=== PATIENT | female | born 1965 | race Caucasian/White ===

== ENCOUNTER 2019-04-01 21:37 | Emergency (ER) | payer BC, OTHER ==
--- NOTE | 2019-04-01 22:14 | ER Document Report ---
ED Medical Screen (RME) - General Chief Complaint: Leg Pain Stated Complaint: PAIN IN LEFT LEG Time Seen by Provider: 04/01/19 22:12 Primary Care Provider: BROOK SPARKS [Primary Care Provider] - Follow up as needed Notes: Patient is a 53-year-old female with a history of hypertension who presents to the emergency department with the acute onset of left lower calf pain and leg swelling. Patient states that this occurred at 10 AM this morning. Patient denies injury or fall. Patient states she does not have a history DVT. Patient denies any open wounds or lacerations. Patient denies a history of cellulitis. Patient denies a history of diabetes. Denies recent long car rides or travel. TRAVEL OUTSIDE OF THE [place] IN LAST 30 DAYS: No Physical Exam - Vital signs Vitals: Temp Pulse Resp BP Pulse Ox 98.0 F 87 20 147/93 H 95 04/01/19 21:57 04/01/19 21:57 04/01/19 21:57 04/01/19 21:57 04/01/19 21:57 - Extremities Notes: Left calf is warm to touch, there is significant edema to the left lower extremity including the foot. No erythema or open wounds. Course - Re-evaluation Re-evalutation: 04/01/19 22:14 I have greeted and performed a rapid initial assessment of this patient. A c omprehensive ED assessment and evaluation of the patient, analysis of test results and completion of the medical decision making process will be conducted by additional ED providers. - Vital Signs Vital signs: Temp Pulse Resp BP Pulse Ox 98.0 F 87 20 147/93 H 95 04/01/19 21:57 04/01/19 21:57 04/01/19 21:57 04/01/19 21:57 04/01/19 21:57 Doctor's Discharge - Discharge Referrals: BROOK SPARKS [Primary Care Provider] - Follow up as needed
[2019-04-01 23:02] LABS: ABSOLUTE EOSINOPHILS # (AUTO) 0.2 10^3/uL (0.0-0.6); ABSOLUTE LYMPHOCYTES (AUTO) 1.9 10^3/uL (0.5-4.7); RED BLOOD COUNT 4.54 10^6/uL (3.72-5.28); RED CELL DISTRIBUTION WIDTH 14.1 % (11.5-14.0); TOTAL CELLS COUNTED % (AUTO) 100 %
[2019-04-01 23:10] LABS: ABSOLUTE BASOPHILS # (AUTO) 0.1 10^3/uL (0.0-0.2); ABSOLUTE MONOCYTES (AUTO) 0.6 10^3/uL (0.1-1.4); ABSOLUTE NEUT (AUTO) 4.7 10^3/uL (1.7-8.2); BASOPHILS % (AUTO) 0.7 % (0-2); EOSINOPHILS % (AUTO) 3.1 % (0-6); HEMOGLOBIN 15.2 g/dL (12.0-15.5); LYMPHOCYTES % (AUTO) 25.9 % (13-45); MEAN CORPUSCULAR HEMOGLOBIN 33.5 pg (27.0-33.4); MEAN CORPUSCULAR HGB CONC 34.7 g/dL (32.0-36.0); MEAN CORPUSCULAR VOLUME 97 fl (80-97); MONOCYTES % (AUTO) 7.4 % (3-13); PLATELET COUNT 210 10^3/uL (150-450); SEGMENTED NEUTROPHILS % (AUTO) 62.9 % (42-78); WHITE BLOOD COUNT 7.4 10^3/uL (4.0-10.5)
[2019-04-01 23:20] LABS: ANION GAP 9 (5-19); BLOOD UREA NITROGEN 5 mg/dL (7-20); CALCIUM 9.1 mg/dL (8.4-10.2); CARBON DIOXIDE 26 mmol/L (22-30); CHLORIDE 99 mmol/L (98-107); GLUCOSE 114 mg/dL (75-110); POTASSIUM 4.1 mmol/L (3.6-5.0); SODIUM 134.4 mmol/L (137-145)
[2019-04-02] MEDS ORDERED: HYDROCODONE/ACETAMINOPHEN 5-325 MG TABLET PO ONE ×2 (01:07→06:42)
--- NOTE | 2019-04-02 01:08 | ER Document Report ---
ED Extremity Problem, Lower - General TRAVEL OUTSIDE OF THE [place] IN LAST 30 DAYS: No <YOLANDA MORENO - Last Filed: 04/02/19 06:42> <DARLING HUNTER - Last Filed: 04/02/19 11:54> - General Chief Complaint: Leg Pain Stated Complaint: PAIN IN LEFT LEG Time Seen by Provider: 04/01/19 22:12 Primary Care Provider: CLARE,BROOK [NO LOCAL MD] - Follow up as needed Notes: Patient is a 53-year-old female with a history of hypertension who presents to the emergency department with left calf pain and swelling that started at 10 AM yesterday morning. Patient denies injury or fall. Patient denies any recent car travel. Patient denies recent surgery. Patient states that the pain is worse with movement and walking. Patient states that she is having a calf pain and redness to the site. Patient denies fever. Feels like an aching in nature. (YOLANDA MORENO) Past Medical History - General Information source: Patient - Social History Smoking Status: Current Every Day Smoker Cigarette use (# per day): No Chew tobacco use (# tins/day): No Frequency of alcohol use: Heavy Drug Abuse: None Lives with: Family Family History: None Patient has suicidal ideation: No Patient has homicidal ideation: No - Past Medical History Cardiac Medical History: Reports: Hx Hypertension Pulmonary Medical History: Reports: None EENT Medical History: Reports: None Neurological Medical History: Reports: None Endocrine Medical History: Reports: None Renal/ Medical History: Reports: None. Denies: Hx Peritoneal Dialysis Malignancy Medical History: Reports: None GI Medical History: Reports: None Musculoskeletal Medical History: Reports None Skin Medical History: Reports None Psychiatric Medical History: Reports: Hx Depression Traumatic Medical History: Reports: None Infectious Medical History: Reports: None Past Surgical History: Reports: Hx Orthopedic Surgery - shoulder <YOLANDA MORENO - Last Filed: 04/02/19 06:42> Review of Systems - Review of Systems Constitutional: No symptoms reported EENT: No symptoms reported Cardiovascular: No symptoms reported Respiratory: No symptoms reported Gastrointestinal: No symptoms reported Genitourinary: No symptoms reported Female Genitourinary: No symptoms reported Musculoskeletal: See HPI Skin: See HPI Hematologic/Lymphatic: No symptoms reported Neurological/Psychological: No symptoms reported <YOLANDA MORENO - Last Filed: 04/02/19 06:42> Physical Exam - Vital signs Interpretation: Hypertensive <YOLANDA MORENO - Last Filed: 04/02/19 06:42> - Vital signs Vitals: Temp Pulse Resp BP Pulse Ox 98.0 F 87 20 147/93 H 95 04/01/19 21:57 04/01/19 21:57 04/01/19 21:57 04/01/19 21:57 04/01/19 21:57 - Notes Notes: GENERAL: Well-appearing, well-nourished and in no acute distress. HEAD: Atraumatic, normocephalic. EYES: Pupils equal round and reactive to light, extraocular movements intact, sclera anicteric, conjunctiva are normal. ENT: TMs normal, nares patent, oropharynx clear without exudates. Moist mucous membranes. NECK: Normal range of motion, supple without lymphadenopathy or JVD. LUNGS: Breath sounds clear to auscultation bilaterally and equal. No wheezes rales or rhonchi. HEART: Regular rate and rhythm without murmurs, rubs or gallops. ABDOMEN: Soft, nontender, normoactive bowel sounds. No guarding, no rebound. No masses appreciated. BACK: No cervical, thoracic, lumbar midline tenderness. No saddle anesthesia, normal distal neurovascular exam. GENITOURINARY: Deferred. EXTREMITIES: Normal range of motion, + edema to left lower extremity that extends into the left foot, calf tenderness with palpation, minimal amount of erythema noted to the left calf. + dorsalis pedis pulse and posterior tibial pulse. No clubbing or cyanosis. NEUROLOGICAL: Cranial nerves II through XII grossly intact. Normal speech, normal gait. PSYCH: Normal mood, normal affect. SKIN: Warm, Dry, normal turgor, no rashes or lesions noted. (JOSHYOLANDA) Course - Laboratory Result Diagrams: 04/01/19 22:49 04/01/19 22:49 <JOSHMEKA MAXWELLCA - Last Filed: 04/02/19 06:42> - Laboratory Result Diagrams: 04/01/19 22:49 04/01/19 22:49 <DARLING HUNTER - Last Filed: 04/02/19 11:54> - Re-evaluation Re-evalutation: 04/02/19 01:05 Upon evaluation of patient she is resting comfortably on stretcher. Patient continues to have left lower extremity edema. I had seen the patient originally in triage and there is no significant change in the swelling. I do believe patient needs a Doppler ultrasound of the left lower extremity. I did inform the patient that the staff to perform this procedure is not available until 7:30 in the morning. Patient verbalizes understanding and would like to wait overnight in the emergency department as she knows something is not right. I will medicate the patient appropriately and monitor throughout the night. 04/02/19 06:42 Patient resting comfortably on stretcher. Patient states that the pain pill did help her earlier but now she is starting to have pain. The swelling in the left foot does appear less swollen but patient does have significant left calf pain and swelling and extreme tenderness. I did update the patient that early this morning they will be doing her Doppler ultrasound. Patient denies questions or concerns at this time. (YOLANDA MORENO) 04/02/19 08:52 Assumed care of patient from Yolanda Moreno NP. Awaiting venous Doppler. 04/02/19 10:03 nuclear medicine technologist reported to me that there is a nonvascular complex heterogeneous mass 5 x 3 x 2 cm, no evidence of DVT or superficial venous thrombosis. Awaiting Dr. Hurt, radiologist, to read to give patient proper guidance for outpatient follow-up. 04/02/19 11:50 I made repeated attempts to contact the radiologist but was unsuccessful. Patient does not have a DVT and she is in the process of establishing a primary care doctor. At this time there is no dangerous condition that would require immediate attention or treatment. I instructed patient that she can wear compression stockings and elevate the leg as needed. Patient is in pain so I will treat her pain prior to discharge. At this time her vital signs are within normal limits and she has a strong dorsalis pedis and posterior tibialis pulse of the left leg. She is stable for discharge. (DARLING HUNTER) - Vital Signs Vital signs: Temp Pulse Resp BP Pulse Ox 97.6 F 87 18 145/88 H 97 04/02/19 11:09 04/02/19 11:09 04/02/19 11:09 04/02/19 11:09 04/02/19 11:09 - Laboratory Laboratory results interpreted by me: 04/01/19 04/01/19 22:49 22:49 MCH 33.5 H RDW 14.1 H Sodium 134.4 L BUN 5 L Glucose 114 H Discharge <YOLANDA MORENO - Last Filed: 04/02/19 06:42> <LILIA HUNTEREL - Last Filed: 04/02/19 11:54> - Discharge Clinical Impression: Calf swelling Condition: Good Disposition: HOME, SELF-CARE Additional Instructions: You were seen in the emergency department last night and today for calf swel ling. I apologize for your long wait. The ultrasound did not show any evidence of a DVT or blood clot. It did show a complex mass of some type that will require follow-up outpatient. It is unclear what it is at this time as radiology read is pending. Regardless, there is nothing life-threatening at this time. If there are any concerning changes you will receive a phone call from someone in the emergency department. Please return to the emergency department if you develop fever, swelling of your entire leg above the knee, inability to bear weight on it, acute shortness of breath or chest pain, or you have any other concerning symptoms. Referrals: LOCALMD,NO [NO LOCAL MD] - Follow up as needed
[2019-04-02 12:03] VITALS: BP 145/111
[2019-04-02] MEDS ORDERED: HYDROCODONE/ACETAMINOPHEN 5-325 MG (6 TAB/ER DISP) PO PRN (12:09)
--- NOTE | 2019-04-03 17:28 | XCELERA REPORT ---
[address] [address] Lower Extremity Venous Evaluation Procedure: Color flow and duplex imaging of the veins of the left lower extremity as well as the right Common Femoral vein. Right Sided Venous Evaluation The right common femoral vein is fully compressible. Spontaneous and phasic flow is present in the right common femoral vein. Left Sided Venous Evaluation Lucent,spaces in subcutaneous tissues of the leg, suggesting edema, noted. Also a large, 5 x 3 x 2 cms, non vascular,complex mass in the Popliteal fossa. Normal vessel filling wall to wall, compression and augmentation as well as Colour flow down to the infrageniculate veins. Critical Findings Study discussed with the patient. Interpretation Summary No duplex evidence of DVT or obstruction in the left lower extremity nor in the right Common Femoral vein. A large left Popliteal cyst is noted, this could be a Chu's cyst. With leg edema. Name: GIOVANI GREEN Age: 53 yrs Gender: Female : 1965 Patient Status: Emergency Patient Location: ER Study Date: 04/02/2019 09:07 AM Reason For Study: left lower extremity swelling, calf pain Ordering Physician: YOLANDA MORENO Performed By: Kristen Cruz : YOLANDA MORENO > Isac Hurt
== END 2019-04-02 12:17 | disposition home or self-care (01) ==
LOC: ER 21:37
DX: M79.605 Pain in left leg (principal); M79.89 Other specified soft tissue disorders; I10 Essential (primary) hypertension; F17.200 Nicotine dependence, unspecified, uncomplicated
CPT/HCPCS: 36415; 80048; 85025; 93971; 99284